=== PATIENT | male | born 1965 | race Caucasian/White ===

== ENCOUNTER 2019-03-26 16:17 | Emergency (ER) | payer OTHER ==
[~2019-03-26] VITALS: Ht 177.8 cm; Wt 77.1 kg
== END 2019-03-26 21:12 | disposition home or self-care (01) ==
LOC: ED 16:17
DX: S06.0X0A Concussion without loss of consciousness, initial encounter (principal); S16.1XXA Strain of muscle, fascia and tendon at neck level, initial encounter; W22.8XXA Striking against or struck by other objects, initial encounter
CPT/HCPCS: 70450; 72125; 99283-25

== ENCOUNTER 2023-06-20 12:59 | Day surgery (SDC) | payer BC ==
[~2023-06-20] VITALS: Ht 177.8 cm; Wt 82.1 kg
[~2023-06-20 12:59] MED LIST: OSTERA TABLET1 EACH PO; [UNRECOGNIZED DRUG - OTHER] PO
[2023-06-20 13:21] VITALS: BP 113/75
[2023-06-20] MEDS ORDERED: CINNAMON500 MG PO (13:27)
--- NOTE | 2023-06-20 15:12 | NUR ---
06/20/23 1512 Shannon Estrada PT TO PACU SLEEPING BUT AROUSABLE, RESPONDS TO VERBAL STIMULI AND VERBAL CAMMANDS.
[2023-06-20 16:15] VITALS: BP 114/76
--- NOTE | 2023-06-21 19:06 | OR ---
[facility] [address] [place], [place] [address] Signed DATE OF OPERATION: 06/20/2023 SURGEON: Destin Paul MD PREOPERATIVE DIAGNOSIS: History of polyps 2018 (Dr. Nito Delaney, [place], [place]). POSTOPERATIVE DIAGNOSIS: Polyps x6. PROCEDURE: Total colonoscopy to cecum with cold snare polypectomy x3, cold morcellation polypectomy x3. ANESTHESIA: Intravenous sedation; fentanyl 100 mcg and Versed 8 mg. INDICATION: This 57-year-old white man previously lived in [place], [place], and now lives in this area. He underwent colonoscopy in [place], [place] by Dr. Nito Delaney where he was found to have polyps in 2018. He has no symptoms of bleeding, diarrhea or constipation and no family history of colon cancer. He is admitted at this time to undergo surveillance colonoscopy. He understands the risk of bleeding, infection, and perforation. FINDINGS: The prep was adequate. Complete colonoscopy was undertaken the cecum. He had six polyps in total, one in the transverse, three in the right colon and two in the cecum essentially. DESCRIPTION OF PROCEDURE: The patient was brought to the endoscopy suite and placed in the lateral decubitus position, given intravenous sedation to the point of slurred speech and nystagmus. Digital rectal examination was normal. An Olympus video colonoscope was passed in the rectum and manipulated throughout the colon noting a small polyp in the transverse colon. This was excised with cold morcellation technique. Further advancing the scope showed two small polyps in the proximal ascending colon, essentially the hepatic flexure, really one of which was excised with cold snare technique, the other with cold morcellation technique. Another Electronically Signed By: DESTIN PAUL MD 06/21/23 1906 PATIENT NAME: ALISA GARCIA OPERATIVE REPORT DATE OF : 67 REPORT #: [id number] PHYSICIAN: DESTIN PAUL MD PCP: AMBROSIO MARIE MD REPORT IS CONFIDENTIAL AND NOT TO BE RELEASED WITHOUT AUTHORIZATION [facility] [address] [place] [id number] Signed small polyp was noted there as well, which was additionally excised. The scope was advanced to the cecal area where a polyp was noted, which was excised with cold snare technique and passed for pathology as well. The scope was withdrawn and another small polyp just proximal to the cecum was noted, this was excised as well. Careful withdrawal of the scope showed no sign of other abnormality. Retroflexed view of the rectum was normal. The scope was removed and the patient was taken to the recovery room in good condition. CONCLUDING DIAGNOSIS: Polyps x6. PLAN: Recommend repeat colonoscopy in 1 to 2 years, sooner if symptoms should occur. MD WAYNE Miller/ISAACL /[id number] cc: Dr. Nito Marie Copies: ~ Electronically Signed By: DESTIN PAUL MD 06/21/23 1906 PATIENT NAME: ALISA GARCIA OPERATIVE REPORT DATE OF : 67 REPORT #: [id number] PHYSICIAN: DESTIN PAUL MD PCP: AMBROSIO MARIE MD REPORT IS CONFIDENTIAL AND NOT TO BE RELEASED WITHOUT AUTHORIZATION
--- NOTE | 2023-06-22 19:00 | PATH ---
[facility] [address] [facility] [place] [place] [address] Signed SPECIMEN(S): A TRANSVERSE COLON POLYP SPECIMEN(S): B ASCENDING/RIGHT COLON POLYPS SPECIMEN(S): C ASCENDING/RIGHT COLON POLYP SPECIMEN(S): D COLON POLYP SPECIMEN SOURCE: A. TRANSVERSE COLON POLYP B. ASCENDING/RIGHT COLON POLYPS C. ASCENDING/RIGHT COLON POLYP D. COLON POLYP CLINICAL HISTORY: History of polyps FINAL PATHOLOGIC DIAGNOSIS: A. Transverse colon polyp, biopsy: - Minute tubular adenoma. - Negative for high-grade dysplasia and malignancy. B. Ascending/right colon polyps, biopsy: - Largest piece: Tubular adenoma; negative for high-grade dysplasia and malignancy. - Smaller pieces: Unremarkable colonic mucosa with benign lymphoid aggregates. C. Ascending/right colon polyp, biopsy: - Tubular adenoma; 1 of 3 pieces. - Negative for high-grade dysplasia and malignancy. - Colonic mucosa with a benign lamina propria lymphoid aggregate; 1 of 3 pieces. - Unremarkable colonic mucosa; 1 of 3 pieces. D. Colon polyp, biopsy: - Tubular adenoma. - Negative for high-grade dysplasia and malignancy. SDL MICROSCOPIC EXAMINATION: Histologic sections of all submitted blocks are examined by light microscopy. These findings, together with the gross examination, support the pathologic diagnosis. GROSS DESCRIPTION: A. The specimen, labeled and designated "Kristin, transverse colon polyp," is received in formalin and consists of one villarreal soft tissue fragment, 0.3 cm. PATIENT NAME: ALISA GARCIA PATHOLOGY DATE OF : 67 REPORT #: [id number] PHYSICIAN: ИРИНА ERVIN PCP: AMBROSIO MARIE MD REPORT IS CONFIDENTIAL AND NOT TO BE RELEASED WITHOUT AUTHORIZATION [facility] [address] [place], [place] [address] Signed Entirely submitted in (A1). B. The specimen, labeled and designated "Kristin, ascending/right colon polyps," is received in formalin and consists of five villarreal soft tissue fragments, ranging from 0.2-0.5 cm. Entirely submitted in (B1). C. The specimen, labeled and designated "Kristin, ascending/right colon polyp," is received in formalin and consists of three villarreal soft tissue fragments, ranging from 0.1-0.2 cm. Entirely submitted in (C1). D. The specimen, labeled and designated "Kristin, colon polyp," is received in formalin and consists of one villarreal soft tissue fragment, 0.4 cm. Entirely submitted in (D1). VB (under the direct supervision of a pathologist) The Gross Description was prepared using a voice recognition system. The report was reviewed for accuracy; however, sound-alike word errors, addition and/or deletions may occur. If there is any question about this report, please contact Client Services. ADDITIONAL NOTES: Immunohistochemical and/or in situ hybridization studies if performed in this case included appropriate positive controls that reacted as expected. This test was developed and its performance characteristics determined by [facility]. It has not been cleared or approved by the U.S. Food and Drug Administration. The FDA has determined that such clearance or approval is not necessary. This test is used for clinical purposes. It should not be regarded as investigational or for research. [facility] is certified under the Clinical Laboratory Improvement Amendments of 1988 (CLIA) as qualified to perform high complexity clinical laboratory testing. PERFORMING LABORATORY: Technical component was performed by [facility], [address] [place] [id number] (CLIA# [id number]). Professional interpretation was performed by [facility] - [facility], [address] [place] [phone] (CLIA#: [id number]). Diagnostician: Brandy Sharpe MD Pathologist Electronically Signed 06/22/2023 PATIENT NAME: ALISA GARCIA PATHOLOGY DATE OF : 67 REPORT #: [id number] PHYSICIAN: ИРИНА PATHOLOGY PCP: AMBROSIO MARIE MD REPORT IS CONFIDENTIAL AND NOT TO BE RELEASED WITHOUT AUTHORIZATION [facility] [address] [place] [id number] Signed Copies: ~ PATIENT NAME: ALISA GARCIA PATHOLOGY DATE OF : 67 REPORT #: [id number] PHYSICIAN: ИРИНА PATHOLOGY PCP: AMBROSIO MARIE MD REPORT IS CONFIDENTIAL AND NOT TO BE RELEASED WITHOUT AUTHORIZATION
== END 2023-06-20 16:30 | disposition home or self-care (01) ==
LOC: OPS 12:59 → DS 12:59 → OPS 14:00 → DS 14:00 → OPS 16:30
PROVIDERS: ATTEND Surgery
PROC: 0DBL8ZX Excision of Transverse Colon, Via Natural or Artificial Opening Endoscopic, Diagnostic (ICD-10-PCS; 2023-06-20)
PROC: 0DBH8ZX Excision of Cecum, Via Natural or Artificial Opening Endoscopic, Diagnostic (ICD-10-PCS; 2023-06-20)
PROC: 0DBK8ZX Excision of Ascending Colon, Via Natural or Artificial Opening Endoscopic, Diagnostic (ICD-10-PCS; principal; 2023-06-20 14:00)
DX: Z12.11 Encounter for screening for malignant neoplasm of colon (principal); D12.3 Benign neoplasm of transverse colon; K63.5 Polyp of colon; D12.6 Benign neoplasm of colon, unspecified
CPT/HCPCS: 99153; G0500; J2250; J3010; J7121

== ENCOUNTER 2024-11-16 09:32 | Day surgery (SDC) | payer BC ==
[~2024-11-16] VITALS: Ht 177.8 cm; Wt 84.1 kg
[~2024-11-16 09:32] MED LIST changes: +CINNAMON500 MG PO; +IBLOOD GLUCOSE TEST STRIP 1 EA TEST VI PRN; +LACTATED RINGER'S 1,000 ML IV SCH; +LIDOCAINE HCL 1% 5 ML SDV INJ ONE; +MIDAZOLAM HCL 5 MG/5 ML VIAL IV PRN; +fentaNYL citrate 100 MCG/2 ML VIAL IV PRN
[2024-11-16] MEDS ORDERED: CALCIUM500 MG PO (09:36)
[2024-11-16 09:52] VITALS: BP 114/74
[2024-11-16] MEDS ORDERED: MIDAZOLAM HCL 5 MG/5 ML VIAL ONE (10:19)
[2024-11-16] MEDS ORDERED: fentaNYL citrate 100 MCG/2 ML VIAL ONE (10:20)
--- NOTE | 2024-11-16 11:35 | NUR ---
11/16/24 1135 Lizet Vela 1115- PT PRESENTS TO PACU, LEFT LATERAL POSITION, VERY DROWSY. PT ABD FLAT, FIRM, PT STATES "FEELS FULL", ENCOURAGED TO PASS GAS, PT FALLS TO SLEEP WHILE THIS RN TALKING. BREATHING EVEN AND NON LABORED, 3L O2 PER NC. LR INFUSING TO RH IV. ALL MONITORS IN PLACE. 1123- DR PAUL AT BEDSIDE, PT WAKES TO CONTINUOUS LOUD VERBAL STIMULI. FALLS BACK TO SLEEP. 1130- PT WAKES ON AND OFF ON OWN, REPORTS ABD FEELS BLOATED 5/10. ENCOURAGED TO PASS GAS. DENIES NAUSEA. PT FALLS BACK TO SLEEP EASILY.
--- NOTE | 2024-11-16 12:04 | OR ---
[facility] [address] [place], [place] [address] Signed DATE OF OPERATION: 11/16/2024 SURGEON: Destin Paul MD PREOPERATIVE DIAGNOSIS: Greater than six polyps in June 2023. POSTOPERATIVE DIAGNOSIS: Polyps x3. PROCEDURES: Total colonoscopy to cecum with cold snare polypectomy x1 and cold morcellation polypectomy x2 ANESTHESIA: Intravenous sedation, fentanyl 100 mcg and Versed 7 mg. INDICATIONS FOR THE PROCEDURE: This 59-year-old white man is a patient of [facility]. He underwent colonoscopy by [facility] in June of 2023 and was recommended to have relatively short-term follow up in 1-2 years based on more than six adenomatous polyps identified at that time. He currently has no symptoms of bleeding, diarrhea, or constipation and no family history of colon cancer. He is admitted at this time to undergo colonoscopy for surveillance. He understands the risk of bleeding, infection, and perforation. FINDINGS: The prep was excellent. Complete colonoscopy was undertaken to the cecum with full intubation of the cecum. There were three polyps identified, all excised completely, all of them small. The first was at 80 cm, second at 50 cm, and third at 30 cm. There were no other findings of note. DESCRIPTION OF PROCEDURE: The patient was brought to the endoscopy suite and placed in lateral decubitus position given intravenous sedation to the point of slurred speech and nystagmus. Digital rectal examination was normal. An Olympus video colonoscope was passed in the rectum and manipulated throughout the colon ultimately intubating the cecum itself. The ileocecal valve and appendiceal orifice were normal. The scope was withdrawn from that point and careful inspection showed no sign of abnormality until approximately 80 cm from the anal verge, where a small polyp was noted, this was affirmed by narrow-band imaging. Cold morcellation excision was undertaken. The scope was withdrawn. Another similar such Electronically Signed By: DESTIN PAUL MD 11/16/24 1204 PATIENT NAME: ALISA GARCIA OPERATIVE REPORT DATE OF : 67 REPORT #: [id number] PHYSICIAN: DESTIN PAUL MD PCP: AMBROSIO MARIE MD REPORT IS CONFIDENTIAL AND NOT TO BE RELEASED WITHOUT AUTHORIZATION [facility] [address] [place], [place] [address] Signed polyp was noted at 50 cm, similarly excised. Further withdrawal showed a somewhat larger sessile polyp in the sigmoid at approximately 30 cm from the anal verge, this was excised with cold snare polypectomy technique. Further withdrawal showed no other abnormality. Retroflexed view was normal. The scope was removed. The patient was taken to the recovery room in good condition. CONCLUDING DIAGNOSIS: Polyps x3. PLAN: Recommend repeat colonoscopy in 3-5 years or sooner if symptoms should develop based on recent findings. He will return to the ongoing care of Dr. Marie. MD WAYNE Miller/GET /[id number] cc: Dr. Marie Copies: ~ Electronically Signed By: DESTIN PAUL MD 11/16/24 1202 PATIENT NAME: JOSEALISA GARCIA OPERATIVE REPORT DATE OF : 67 REPORT #: [id number] PHYSICIAN: DESTIN PAUL MD PCP: AMBROSIO MARIE MD REPORT IS CONFIDENTIAL AND NOT TO BE RELEASED WITHOUT AUTHORIZATION
[2024-11-16 12:32] VITALS: BP 108/75
--- NOTE | 2024-11-16 12:33 | NUR ---
PT FROM PACU DRINKING WATER AT THIS TIME. ABD ROUND AND FIRM
--- NOTE | 2024-11-16 12:34 | NUR ---
CALL LIGHT WITHIN REACH AND SIDE RAIL IN THE UPRIGHT POSITION.
--- NOTE | 2024-11-16 12:38 | NUR ---
LE 1227: PT IS BROUGHT BACK TO DS FROM PACU DUE TO NOT BEING ABLE TO PASS GAS. HIS ABDOMEN IS DISTENDED AND PAINFUL. LE 1236: PT IS HEARD PASSING SOME GAS. HE STATES THE TENDERNESS AND PAIN AND DISSIPATED A LITTLE BIT.
[2024-11-16] MEDS ORDERED: GLYCERIN 1 GM SUPP PR ONE (12:45)
[2024-11-16 13:25] VITALS: BP 94/56
--- NOTE | 2024-11-16 13:33 | NUR ---
PRESTON 1325: PT IS GIVEN VERBAL AND WRITTEN DC INSTRUCTIONS WITH HIS PRESENT. THEY BOTH VERBALIZE UNDERSTANDING. HE IS EDUCATED ON HOW TO BEST DRESS HIMSELF AND TO OPEN HIS CURTAIN WHEN READY. HE IS TAKEN TO PERSON VEHICLE VIA BY Laquita SINCLAIR RN.
--- NOTE | 2024-11-20 12:28 | PATH ---
[facility] [address] [facility] [place] [address] Signed SPECIMEN(S): A DESCENDING COLON POLYP AT 80 CM SPECIMEN(S): B DESCENDING COLON POLYP AT 50 CM SPECIMEN(S): C SIGMOID POLYP AT 30 CM SPECIMEN SOURCE: A. DESCENDING COLON POLYP AT 80 CM B. DESCENDING COLON POLYP AT 50 CM C. SIGMOID POLYP AT 30 CM CLINICAL HISTORY: History of 6 polyps 07/09 FINAL PATHOLOGIC DIAGNOSIS: A. Descending colon polyp at 80 cm: - Tubular adenoma (two fragments). B. Descending colon polyp at 50 cm: - Tubular adenoma (one fragment). C. Sigmoid polyp at 30 cm: - Tubular adenoma (multiple fragments). JVR:[facility] MICROSCOPIC EXAMINATION: Histologic sections of all submitted blocks are examined by light microscopy. These findings, together with the gross examination, support the pathologic diagnosis. GROSS DESCRIPTION: A. The specimen, labeled and designated "Kristin, descending colon polyp at 80 cm," is received in formalin and consists of three villarreal soft tissue fragments, ranging from 0.2-0.3 cm. Entirely submitted in (A1). B. The specimen, labeled and designated "Kritsin, descending colon polyp at 50 cm," is received in formalin and consists of three villarreal soft tissue fragments, ranging from 0.1-0.8 cm. Entirely submitted in (B1). C. The specimen, labeled and designated "Kristin, sigmoid polyp at 30 cm," is received in formalin and consists of seven villarreal soft tissue fragments, ranging from 0.2-0.4 cm. Entirely submitted in (C1). VB (under the direct supervision of a pathologist) The Gross Description was prepared using a voice recognition system. The report was reviewed for accuracy; however, sound-alike word errors, addition and/or PATIENT NAME: ALISA GARCIA PATHOLOGY DATE OF : 67 REPORT #: [id number] PHYSICIAN: ИРИНА ERVIN PCP: AMBROSIO MARIE MD REPORT IS CONFIDENTIAL AND NOT TO BE RELEASED WITHOUT AUTHORIZATION [facility] [address] [place], [place] [address] Signed deletions may occur. If there is any question about this report, please contact Client Services. PERFORMING LABORATORY: Technical component was performed by [facility], [address] [place] [address] (CLIA# [id number]). Professional interpretation was performed by [facility] - [facility], [address] [place] [phone] (CLIA#: [id number]). Diagnostician: Alex Motta MD Pathologist Electronically Signed 11/20/2024 Copies: ~ PATIENT NAME: ALISA GARCIA PATHOLOGY DATE OF : 67 REPORT #: [id number] PHYSICIAN: ИРИНА PATHOLOGY PCP: AMBROSIO MARIE MD REPORT IS CONFIDENTIAL AND NOT TO BE RELEASED WITHOUT AUTHORIZATION
== END 2024-11-16 13:25 | disposition home or self-care (01) ==
LOC: DS 09:32
PROVIDERS: ATTEND Surgery
PROC: 0DBN8ZX Excision of Sigmoid Colon, Via Natural or Artificial Opening Endoscopic, Diagnostic (ICD-10-PCS; 2024-11-16)
PROC: 0DBM8ZX Excision of Descending Colon, Via Natural or Artificial Opening Endoscopic, Diagnostic (ICD-10-PCS; principal; 2024-11-16 11:15)
DX: Z12.11 Encounter for screening for malignant neoplasm of colon (principal); D12.4 Benign neoplasm of descending colon; D12.5 Benign neoplasm of sigmoid colon; Z88.1 Allergy status to other antibiotic agents; Z79.899 Other long term (current) drug therapy; Z87.09 Personal history of other diseases of the respiratory system
CPT/HCPCS: 99153; G0500; J2250; J3010; J7121